=== PATIENT | female | born 1985 | race Caucasian/White ===

== ENCOUNTER 2016-05-15 10:52 | Emergency (ER) | payer MEDICAID ==
[~2016-05-15] VITALS: Ht 160 cm; Wt 55.9 kg
[2016-05-15] MEDS ORDERED: HYDROCODONE/ACETAMINOPHEN 5-325 MG TABLET PO ONE (13:15)
[2016-05-15 14:27] VITALS: BP 115/75
== END 2016-05-15 14:48 | disposition home or self-care (01) ==
LOC: EMS 10:54 → EDBD 10:54 → EMS 14:48
DX: S20.211A Contusion of right front wall of thorax, initial encounter (principal); W01.10XA Fall on same level from slipping, tripping and stumbling with subsequent striking against unspecified object, initial encounter; Y93.89 Activity, other specified; Y92.89 Other specified places as the place of occurrence of the external cause; Y99.8 Other external cause status
CPT/HCPCS: 71020; 99284

== ENCOUNTER 2017-01-16 00:23 | Emergency (ER) | payer MEDICAID ==
[~2017-01-16] VITALS: Ht 157.5 cm; Wt 52.3 kg
[2017-01-16 01:00] LABS: BASOPHILS # (AUTO) 0.04 K/uL (0.00-0.20); BASOPHILS % (AUTO) 0.5 % (0.0-2.0); EOSINOPHILS # (AUTO) 0.17 K/uL (0.00-0.70); EOSINOPHILS % (AUTO) 1.98 % (1.0-6.0); HEMATOCRIT 39.3 % (36-46); HEMOGLOBIN 13.2 g/dL (12.0-16.0); LYMPHOCYTES # (AUTO) 3.2 K/uL (1.0-4.8); LYMPHOCYTES % (AUTO) 38.6 % (22.0-44.0); MEAN CORPUSCULAR HEMOGLOBIN 29.6 pg (26.0-34.0); MEAN CORPUSCULAR HGB CONC 33.7 G/dL (31.0-37.0); MEAN CORPUSCULAR VOLUME 88 fL (80-100); MONOCYTES # (AUTO) 0.5 K/uL (0.1-1.0); MONOCYTES % (AUTO) 6.3 % (2.0-9.0); NEUTROPHILS # (AUTO) 4.4 K/uL (1.8-7.7); NEUTROPHILS % (AUTO) 52.8 % (40.0-70.0); PLATELET COUNT (AUTO) 218 K/uL (150-450); RED BLOOD CELL COUNT(AUTO) 4.47 MIL/uL (4.00-5.20); RED CELL DISTRIBUTION WIDTH 12.7 % (11.5-14.5); WHITE BLOOD COUNT (AUTO) 8.4 K/uL (4.5-11.0)
[2017-01-16 01:12] LABS: ANION GAP 6 mmol/L (8-16); CALCIUM, TOTAL 8.7 mg/dL (8.8-10.5); CARBON DIOXIDE 26 mmol/L (22-29); CHLORIDE 105 mmol/L (98-107); CREATININE 0.65 mg/dL (0.60-1.30); GLOMERULAR FILTR. RATE CALC > 60 mL/min (>60); POTASSIUM 3.7 mmol/L (3.5-5.1); SODIUM SERUM 137 mmol/L (136-145); UREA NITROGEN, BLOOD 14 mg/dL (7-18)
[2017-01-16 01:18] LABS: ALANINE AMINOTRANSFERASE 17 U/L (12-78); ASPARTATE AMINOTRANSFERASE 11 U/L (15-37); BILIRUBIN,TOTAL 0.2 mg/dL (0.1-1.0); TOTAL PROTEIN, SERUM 7.2 g/dL (6.4-8.2)
[2017-01-16 01:37] LABS: APPEARANCE,URINE CLEAR (CLEAR); GLUCOSE, URINE (UA) NEGATIVE (NEGATIVE); KETONES,URINE NEGATIVE (NEGATIVE); LEUKOCYTE ESTERASE ,URINE NEGATIVE (NEGATIVE); OCCULT BLOOD,URINE TRACE (NEGATIVE); PROTEIN,URINE NEGATIVE (NEGATIVE)
[2017-01-16 01:38] LABS: ADD UA MICROSCOPIC YES
[2017-01-16 01:48] LABS: SQUAMOUS EPITHELIAL CELL,UR Few /LPF (None Seen); WBC,URINE 0-2 /HPF (0-5)
[2017-01-16] MEDS ORDERED: DICYCLOMINE HCL 20 MG TABLET PO ONE (03:15)
[2017-01-16 03:25] VITALS: BP 118/65
== END 2017-01-16 03:30 | disposition home or self-care (01) ==
LOC: EMS 00:24
DX: R10.9 Unspecified abdominal pain (principal)
CPT/HCPCS: 99284